=== PATIENT | female | born 1995 | race Caucasian/White ===

== ENCOUNTER 2016-04-15 18:19 | Observation (INO) | payer OTHER ==
[~2016-04-15] VITALS: Ht 177.8 cm; Wt 73.5 kg
--- NOTE | 2016-04-15 19:10 | PHYS DOC ---
Past Medical History Past Medical History: No Pertinent History Past Surgical History: Other Additional Past Surgical Histo: right hip lathroscopy and labral repair Alcohol Use: Occasionally Drug Use: None Adult General Chief Complaint Chief Complaint: HIP PAIN HPI HPI Patient is a 20 year old female who presents via EMS for right hip pain after a fall this evening. Report she had arthoscopic surgery on her right hip tuesday , 04/09/16 to repair her labrum performed by Dr. Villegas of sports medicine. Today she was walking with her crutches on gravel and fell to the ground and hip pain has since increased. She then called 911. Reports pain was well controlled at home with Tylenol #3 prior to this event and denies any drainage from site, warmth to area, fever or concerns. Denies any change in sensory or motor. Received 150mcg Fentanyl via EMS Review of Systems Review of Systems Constitutional: Denies fever or chills [] Eyes: Denies change in visual acuity, redness, or eye pain [] HENT: Denies nasal congestion or sore throat [] Respiratory: Denies cough or shortness of breath [] Cardiovascular: No additional information not addressed in HPI [] GI: Denies abdominal pain, nausea, vomiting, bloody stools or diarrhea [] : Denies dysuria or hematuria Musculoskeletal: Right hip pain after fall today Integument: Denies rash or skin lesions [] Neurologic: Denies headache, focal weakness or sensory changes [] Endocrine: Denies polyuria or polydipsia [] Current Medications Current Medications Current Medications Medications (Trade) Dose Ordered Sig/Lin Start Time Stop Time Status Last Admin Dose Admin Fentanyl Citrate (Fentanyl 2ml Vial) 50 mcg 1X ONCE 04/15/16 20:15 04/15/16 20:16 DC 04/15/16 20:08 50 MCG Hydromorphone HCl (Dilaudid) 1 mg 1X ONCE 04/15/16 22:00 04/15/16 22:01 DC 04/15/16 21:51 1 MG Allergies Allergies Allergies Coded Allergies Type Severity Reaction Last Updated Verified Penicillins Allergy Intermediate hives 04/15/16 Yes amoxicillin Allergy Intermediate hives 04/15/16 Yes Physical Exam Physical Exam Constitutional: Well developed, well nourished, no acute distress, non-toxic appearance. HENT: Normocephalic, atraumatic, bilateral external ears normal, oropharynx moist, no oral exudates, nose normal. [] Eyes: PERRLA, EOMI, conjunctiva normal, no discharge. [] Neck: Normal range of motion, no tenderness, supple, no stridor. [] Cardiovascular:Heart rate regular rhythm, no murmur [] Lungs & Thorax: Bilateral breath sounds clear to auscultation [] Abdomen: Bowel sounds normal, soft, no tenderness, no masses, no pulsatile masses. Skin: Warm, dry, no erythema, no rash.Post op steri strips in place right lateral hip, no bleeding, drainage, or surrounding cellulitis present Back: No tenderness, no CVA tenderness. Extremities: Tenderness right lateral hip. Passive ROM intact. Mild swelling to lateral hip. Neurologic: Alert and oriented X 3, normal motor function, normal sensory function, no focal deficits noted. Psychologic: Affect normal, judgement normal, mood normal. [] Current Patient Data Vital Signs Vital Signs Date Time Temp Pulse Resp B/P Pulse Ox O2 Delivery O2 Flow Rate FiO2 04/16/16 00:25 88 18 113/64 98 Room Air 04/15/16 18:31 98.0 98.0 EKG EKG [] Radiology/Procedures Radiology/Procedures [] Impressions: 1. Intractable right hip pain Course & Med Decision Making Course & Med Decision Making Pertinent Labs and Imaging studies reviewed. (See chart for details) Xray did not demonstrate any acute fracture. Patient has required several doses of narcotic pain medication and continues to have severe pain. Consult to Dr. Bhatia via phone regarding plan of care. Suggested MRI to rule out occult fracture and if none seen, may send home with Percocet and Naproxen and follow up with her Sports medicine doctor Bakari. Also suggested if patient unable to go home due to pain, will accept patient as obs and will review MRI in the morning. Received call from radiologist, Dr. Thakkar after MRI and states due to recent procedure and soft tissue swelling, he did not feel comfortable giving a formal read of MRI. Stated he will give a preliminary read and have it over read in the morning. Based on this, patient will be admitted until formal read completed and reviewed by Dr. Bhatia. Patient agrees with plan of care. Dragon Disclaimer Dragon Disclaimer This electronic medical record was generated, in whole or in part, using a voice recognition dictation system. Departure Departure Impression: Primary Impression: Intractable pain Disposition: 09 ADMITTED INPATIENT Admitting Physician: Other Condition: STABLE Referrals: UNKNOWN PCP NAME (PCP) HEIDY GOMEZ APRN Apr 15, 2016 19:10
[2016-04-15] MEDS ORDERED: FENTANYL PF 100 MCG/2 ML VIAL. IV ONE ×2 (19:15→20:15)
[2016-04-15] MEDS ORDERED: HYDROMORPHONE 2 MG/ML VIAL. IV ONE (22:00)
[2016-04-16] MEDS ORDERED: OXYCODONE/APAP 5/325 TABLET. PO PRN ×2 (01:00→04:00)
[2016-04-16] MEDS ORDERED: HYDROMORPHONE 2 MG/ML VIAL. IV ONE (01:00)
--- NOTE | 2016-04-16 01:11 | RAD ---
PROCEDURE MRI of the pelvis without contrast HISTORY EXTREME BILATERAL HIP PAIN, RIGHT WORSE THAN LEFT, HX OF LABRUM REPAIR OF BOTH HIPS, RECENT LABRUM SX ON RIGHT HIP 04/09/16, NO PRIORS, CALL REPORT TO ER AT [phone] TECHNIQUE COMPARISON Comparison made with the radiographs of the pelvis and right hip FINDINGS Preliminary report There is no abnormal signal noted in the bones of the pelvis. There is not evidence to suggest a pelvic fracture. There is no abnormal fluid in the pelvis. There is no abnormal fluid collections about the left hip. There is a prominent joint effusion of the right hip. There is significant edema in the gluteus minimus muscle on the right. There is the edema and fluid surrounding the insertion of the gluteus muscle at the greater trochanter and tendon injury at that location is possible. IMPRESSION Joint effusion right hip Fluid about the right hip and edema and in the gluteus minimus muscle on the right with possible tendon injury No fracture noted in the pelvis or either hip Electronically signed by: Levi Thakkar MD (Apr 16, 2016 01:09:21)
[2016-04-16 01:34] VITALS: BP 121/62
[2016-04-16] MEDS ORDERED: ACET-704 PO (02:31)
[2016-04-16] MEDS ORDERED: ONDA4TAB12 PO (02:34)
[2016-04-16] MEDS ORDERED: INDO50CA PO (02:36)
[2016-04-16] MEDS ORDERED: CYCL10TA2 PO (02:36)
[2016-04-16 03:00] VITALS: BP 124/64
[2016-04-16] MEDS ORDERED: NAPROXEN 500 MG TABLET PO SCH (04:00)
[2016-04-16] MEDS: MORPHINE SULFATE 2 MG/ML DISP.SYRIN. IV PRN ×2 (04:06→07:59)
[2016-04-16 07:00] VITALS: BP 105/57
--- NOTE | 2016-04-16 08:00 | RAD ---
Exam performed: 2 views right femur and single view pelvis including 2 views right hip. History: Trauma, patient fell today complaining of right hip pain radiating down the leg. Date of service: 04/16/16. Comparison: Findings: Single AP view pelvis including AP and frog leg lateral view right hip as well as AP and lateral view of the right femur are obtained. Normal alignment of bilateral hips and sacroiliac joint is preserved. There is no acute fracture or dislocation. Nonspecific bowel gas pattern. IUD in place. Normal alignment of the visualized knee joint is noted. There is no acute fracture or dislocation involving the right knee. No soft tissue swelling or foreign body seen. Impression: 1. No acute abnormality seen in the single view pelvis, right hip and femur
[2016-04-16] MEDS: OXYCODONE/APAP 10/325 TABLET. PO PRN ×2 (08:12→11:07)
--- NOTE | 2016-04-16 08:12 | PDOC ---
ORTHO PROGRESS NOTES Vitals Vital Signs Date Time Temp Pulse Resp B/P Pulse Ox O2 Delivery O2 Flow Rate FiO2 04/16/16 07:59 16 Room Air 04/16/16 03:00 97.6 87 124/64 98 97.6 Assessment and Plan note dictated Adjust pain meds PT, crutches home when pain under better control JESSI OROZCO II, MD Apr 16, 2016 08:12
[2016-04-16] MEDS ORDERED: DOCUSATE SODIUM 100 MG CAPSULE PO PRN (08:30)
[2016-04-16] MEDS ORDERED: DOCU100C5 PO (11:25)
[2016-04-16] MEDS ORDERED: NAPR500T3 PO (11:25)
[2016-04-16] MEDS ORDERED: OXYC1TAB9 PO (11:27)
--- NOTE | 2016-04-17 04:27 | HP ---
ADMIT DATE: 04/16/2016 CHIEF COMPLAINT: Right hip pain. HISTORY OF PRESENT ILLNESS: The patient is a very pleasant 20-year-old female who was brought in by EMS for right hip pain. She underwent a right hip arthroscopy and labral repair, per her report some bone was shaved as well, last Tuesday by Dr. Villegas. She was walking with her crutches yesterday evening, when she lost her footing and fell. She tells me that her pain then initially worsened right away with the fall that got worse later on when she was sitting down. She feels the pain mainly anteriorly at her hip. It does radiate down whole leg. She reports decreased sensation on the dorsum of her foot, which has been present since her left hip arthroscopy several months ago. She tells me she feels like she is unable to abduct her leg. She denies any drainage from the incisions or any redness. Her pain is worse with any attempted motion at her hip. REVIEW OF SYSTEMS: Twelve point review of systems negative except as per HPI. ALLERGIES: 1. PENICILLIN. 2. AMOXICILLIN. PAST MEDICAL HISTORY: Healthy. PAST SURGICAL HISTORY: 1. Right hip arthroscopy several years ago and 2 weeks ago. 2. Left hip arthroscopy several months ago. FAMILY HISTORY: Noncontributory. SOCIAL HISTORY: She is , does use alcohol occasionally, does not use any tobacco or illegal drugs. PHYSICAL EXAMINATION: GENERAL: The patient is alert and oriented. No acute distress. Mood and affect are appropriate. She is examined lying in hospital bed. VITAL SIGNS: Vital signs for this admission have been reviewed. She is afebrile. HEENT: Head normocephalic, atraumatic. Extraocular muscles are intact. CARDIOVASCULAR: Regular rate and rhythm. LUNGS: Respirations are unlabored. ABDOMEN: Soft and nondistended. EXTREMITIES: Examination of bilateral lower extremities reveals decreased sensation to light touch dorsum of the right foot. Otherwise, sensation is intact to light touch throughout bilateral lower extremities. EHL and FHL are 5/5. Dorsiflexion and plantarflexion 5/5. She does have some mild discomfort with log rolling at her right hip. Her right hip examination is significant for 2 healing arthroscopic portals without any drainage or erythema. She does have another old healed portal present anteriorly. She is tender globally around her hip. She has decreased range of motion in her right hip secondary to pain. IMAGING: Femur x-ray, hip and pelvis x-ray, and pelvis MRI were reviewed and interpreted by myself. The reports of these studies were also reviewed. No fractures are seen. She does have the expected large joint effusion and edema in the musculature surrounding her hip. IMPRESSION: 1. Intractable pain due to fall. 2. Recent hip arthroscopy on the right side. PLAN: We will work with her to adjust her pain medicine to get her pain under better control. I did encourage her to contact the surgeon who operated on her to set up a followup sooner. We will get her copy of the MRI that we have obtained, I do not think there is a labral tear present. She will also be maintained on stool softeners as well as anti-inflammatory medicine. JESSI OROZCO MD DR: ALLYN/silvio JOB#: [id number] / [id number] TOI
== END 2016-04-16 12:00 | disposition home or self-care (01) ==
LOC: ER 18:19 → 6 SOUTH 04-16 00:53
PROVIDERS: ADMIT Orthopaedic Surgery Sports Medicine; ATTEND Orthopaedic Surgery Sports Medicine
DX: M25.551 Pain in right hip (principal); W19.XXXA Unspecified fall, initial encounter
CPT/HCPCS: 72195; 73502; 73552; 96374; 96375; 96376; 99285; G0378; J1170; J2270; J3010; G0379